=== PATIENT | male | born 1960 | race Caucasian/White ===

== ENCOUNTER 2022-06-23 15:12 | Outpatient (CLI) | payer BC, SELFPAY ==
--- NOTE | 2022-06-23 15:30 | CRLHL7_ITS ---
For Patients: As a result of the Century Cures Act, medical imaging exams and procedure reports are released immediately into your electronic medical record. You may view this report before your referring provider. If you have questions, please contact your health care provider. INDICATION: Slurred speech. TECHNIQUE: Multiplanar multisequence noncontrast MR images acquired through the brain. COMPARISON: MRI brain 12/03/2011. FINDINGS: Prominence of the ventricles and sulci compatible with minimal diffuse cerebral volume loss. No mass effect or midline shift. Few punctate T2 FLAIR hyperintensities in the supratentorial white matter have slightly progressed, and are nonspecific. No intracranial hemorrhage or pathologic extra-axial fluid collection. No diffusion restriction to suggest acute infarction. The major arterial flow voids of the skullbase are preserved. The globes are symmetric. Postsurgical changes of endoscopic sinus surgery. [id number] paranasal sinus mucosal thickening. Small maxillary sinus retention cysts or polyps. The mastoid air cells are clear. IMPRESSION: 1. No acute infarction, mass effect, or intracranial hemorrhage. 2. Few punctate T2 FLAIR hyperintensities in the supratentorial white matter have slightly progressed, and are most typical for sequelae of minimal chronic microvascular ischemic changes or migraine headaches. 3. Postsurgical changes of endoscopic sinus surgery. Mild to moderate paranasal sinus mucosal thickening. Small maxillary sinus retention cysts or polyps. Dictated by Ken Ramirez MD @ 06/23/2022 4:42:25 PM (Electronically Signed)
== END 2022-06-23 15:13 | disposition home or self-care (01) ==
LOC: MRI 15:13
PROVIDERS: PCP Family Medicine; Visit Provider Family Medicine
DX: R47.81 Slurred speech (principal); J32.0 Chronic maxillary sinusitis
CPT/HCPCS: 70551

== ENCOUNTER 2025-04-02 07:07 | Outpatient (CLI) | payer BC, SELFPAY | END 2025-04-02 07:08 | disposition home or self-care (01) | LOC: INJ CL 07:08 | PROVIDERS: PCP Family Medicine; Visit Provider Family Medicine | DX: M53.3 Sacrococcygeal disorders, not elsewhere classified (principal) | CPT/HCPCS: 27096; J0702; Q9966 ==